=== PATIENT | female | born 1980 | race African-American/Black ===

== ENCOUNTER 2021-10-03 16:43 | Emergency (ER) | payer BC ==
--- OUTSIDE RECORDS SUMMARY | 2021-10-03 16:47 | XMS REPORT | Continuity of Care Document ---
:1980 Author Organization [facility] t Address [facility]3 Alin Nguyen. [address] [place] [address] Care Team Providers Name Role Phone Dalila Roberson Attending Clinician Unavailable Dalila Roberson Attending Clinician Unavailable RK Attending Clinician Unavailable Eileen Attending Clinician Unavailable DR Charlie OSULLIVAN Attending Clinician Unavailable Dalila Roberson Admitting Clinician Unavailable RK Admitting Clinician Unavailable Eileen Admitting Clinician Unavailable DR Charlie OSULLIVAN Admitting Clinician Unavailable Payers Payer Name Policy Type Policy Number Effective Date Expiration Date S boris [place]: [facility] [id number] 2018 EMPLOYEE PROGRAM 00:00:00 (PPO) 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 00:00: [facility] 00 [facility] Angina Angina Problem Active [place] pectoris Pectoris 1-21 da 00:00: [facility] 00 [facility] Obesity Obesity Problem Active 2018-05 [place] 05-25 da 00:00: [facility] Hypertensi Hypertensi Problem Active 2018-05 [place] ve ve 05-25 da disorder Disorder 00:00: [facility] Eruption Eruption Problem Active [place] [facility] Heart Heart Problem Active [place] murmur Murmur [facility] Elevated Elevated Problem Active [place] blood Blood da pressure Pressure Medica l Group Sprain of Sprain of Problem Active [place] ankle Ankle [facility] Infected Infected Problem Active [place] insect Insect da bite [facility] Sprain of Sprain of Problem Active [place] lateral Lateral da ligament Ligament Medica l of ankle of Ankle Group joint Joint Acute Acute Problem Active [place] sinusitis Sinusitis [facility] Upper Upper Problem Active [place] respirator Respirator da y y Medical infection Infection Grou p Butterfly Butterfly Problem Active [place] rash Rash [facility] 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 Disorder Medica l Group Thoracic Thoracic Problem Active [place] back pain Back Pain [facility] Paresthesi Paresthesi Problem Active [place] a of upper a of Upper da limb [facility] Allergies, Adverse Reactions, Alerts Allergy Allergy Status Severity Reaction(s) Onset Inactive Treating Comm ents Source Name Type Date Date Clinician No Known DA Active [facility] s Aspirin Allergy Active [place] to da substanc [facility] Zithroma Allergy Active [place] x to da substanc [facility] RAGWEED Allergy Active [place] POLLEN to da substanc [facility] Singulai Allergy Active Moderate Other [place] r to da substanc [facility] Social History Smoking Status Start Date Stop Date Source Never Smoker [facility] Medications Ordered Filled Start Stop Current Ordering Indication Dosage Frequency Signature Comments Components Source Medication Medication Date Date Medication? Clinician (SIG) Name Name Bystolic 10 Bystolic 10 No Bystolic [place] mg tablet mg tablet 10 mg da TAKE 1 TAKE 1 tablet Medical TABLET TABLET TAKE 1 Group EVERY DAY EVERY DAY TABLET BY ORAL BY ORAL EVERY DAY ROUTE. ROUTE. BY ORAL ROUTE. fluticasone fluticasone No fluticason [place] propionate propionate e da 50 50 propionate Medical mcg/actuati mcg/actuati 50 G roup on nasal on nasal mcg/actuat spray,suspe spray,suspe ion nasal nsion SHAKE nsion SHAKE spray,susp LIQUID AND LIQUID AND ension USE 1 SPRAY USE 1 SPRAY SHAKE IN EACH IN EACH LIQUID AND NOSTRIL NOSTRIL USE 1 EVERY DAY EVERY DAY SPRAY IN EACH NOSTRIL EVERY DAY Mucinex Mucinex No Mucinex [facility] Tylenol Tylenol No Tylenol [facility] [facility] amoxicillin amoxicillin No 1 Q12H amoxicilli [place] [phone] 875 da mg-potassiu mg-potassiu mg-potassi [facility] m m um al clavulanate clavulanate clavulanat Health 125 mg 125 mg e 125 mg Outreac tablet Take tablet Take tablet h 1 tablet 1 tablet Take 1 Progr am every 12 every 12 tablet hours by hours by every 12 oral route oral route hours by for 5 days. for 5 days. oral route Start if no Start if no for 5 improvement improvement days. in symptoms in symptoms Start if in 48-72 in 48-72 no hours. hours. improvemen t in symptoms in 48-72 hours. Bromfed DM Bromfed DM No 10mL Q4H Bromfed DM [place] 2 mg-30 2 mg-30 2 mg-30 da mg-10 mg/5 mg-10 mg/5 mg-10 mg/5 [facility] mL oral mL oral mL oral al syrup Take syrup Take syrup Take Health 10 mL every 10 mL every 10 mL Outreac 4 hours by 4 hours by every 4 h oral route oral route hours by Program as needed. as needed. oral route for cough for cough as needed. and and for cough congestion congestion and congestion Bystolic 10 Bystolic 10 No Bystolic [place] mg tablet mg tablet 10 mg da TAKE 1 TAKE 1 tablet [facility] TABLET TABLET TAKE 1 al EVERY DAY EVERY DAY TABLET Hea lth BY ORAL BY ORAL EVERY DAY Outr eac ROUTE. ROUTE. BY ORAL h ROUTE. Program cetirizine cetirizine No cetirizine [place] 10 mg 10 mg 10 mg da tablet TAKE tablet TAKE tablet [facility] 1 TABLET 1 TABLET TAKE 1 al EVERY DAY EVERY DAY TABLET Hea lth BY ORAL BY ORAL EVERY DAY Outr eac ROUTE FOR ROUTE FOR BY ORAL h 30 DAYS. 30 DAYS. ROUTE FOR Pr ogram 30 DAYS. cyclobenzap cyclobenzap No cyclobenza [place] rine 10 mg rine 10 mg kaya 10 da tablet TAKE tablet TAKE mg tablet [facility] ONE (1) ONE (1) TAKE ONE al TABLET(S) TABLET(S) (1) Healt h BY MOUTH BY MOUTH TABLET(S) Ou treac THREE TIMES THREE TIMES BY MOUTH h A DAY FOR A DAY FOR THREE Prog tod MUSCLE MUSCLE TIMES A SPASMS. SPASMS. DAY FOR MUSCLE SPASMS. fluticasone fluticasone No fluticason [place] propionate propionate e da 50 50 propionate [facility] mcg/actuati mcg/actuati 50 a l on nasal on nasal mcg/actuat H ealth spray,suspe spray,suspe ion nasal Outreac nsion SPRAY nsion SPRAY spray,susp h ONE (1) ONE (1) ension Program SPRAY IN SPRAY IN SPRAY ONE EACH EACH (1) SPRAY NOSTRIL NOSTRIL IN EACH EVERY DAY. EVERY DAY. NOSTRIL EVERY DAY. mometasone mometasone No 2spray( Q1D mometasone [place] 50 50 s) 50 da mcg/actuati mcg/actuati mcg/actuat [facility] on nasal on nasal ion nasal al spray Schroeder spray Schroeder spray Health 2 sprays 2 sprays Schroeder 2 Outr eac every day every day sprays h by by every day Program intranasal intranasal by route. 2 route. 2 intranasal sprays to sprays to route. 2 each each sprays to nostril nostril each nostril Zyrtec 10 Zyrtec 10 No Zyrtec 10 [place] mg capsule mg capsule mg capsule da [facility] Immunizations Ordered Immunization Filled Immunization Date Status Commen ts Source Name Name COVID-19 COVID-19 2020-07-15 Completed [place] (SARS-COV-2) (SARS-COV-2) 00:00:00 [facility] vaccine, unspecified vaccine, Outr each Program unspecified COVID-19 COVID-19 2020-06-24 Completed [place] (SARS-COV-2) (SARS-COV-2) 00:00:00 [facility] vaccine, unspecified vaccine, Outr each Program unspecified Vital Signs Vital Name Observation Time Observation Value Comments Source Height/Length 2021-06-06 10:12:29 162 cm Measured Weight Dosing 2021-06-06 10:12:29 129.72 kg BP Diastolic 2021-08-02 00:00:00 91 mm[Hg] [facility] Height 2021-08-02 00:00:00 64 [facility] BMI (Body Mass 2021-08-02 00:00:00 49.9 kg/m2 [place] [facility] Index) [facility] Outreach Program BP Systolic 2021-08-02 00:00:00 132 mm[Hg] [facility] Body Weight 2021-08-02 00:00:00 4656 [oz_av] [facility] Height 2021-03-20 00:00:00 64 [in_i] [facility] Height 2021-02-23 00:00:00 64 [in_i] [facility] BMI (Body Mass 2021-02-23 00:00:00 51 kg/m2 [place] [facility] Index) [facility] Outreach Program Body Weight 2021-02-23 00:00:00 4752 [oz_av] [facility] BP Diastolic 2021-01-25 00:00:00 90 mm[Hg] [facility] Height 2021-01-25 00:00:00 64 [in_i] [facility] BMI (Body Mass 2021-01-25 00:00:00 51 kg/m2 [place] [facility] Index) Group BP Systolic 2021-01-25 00:00:00 143 mm[Hg] [facility] Body Weight 2021-01-25 00:00:00 297 [lb_av] [facility] Height 2020-10-22 11:14:00 160.02 CM Weight 2020-10-22 11:14:00 134.71 KG Height 2020-10-18 00:00:00 64 [in_i] [facility] BMI (Body Mass 2020-10-18 00:00:00 51 kg/m2 [place] [facility] Index) [facility] Outreach Program Body Weight 2020-10-18 00:00:00 4752 [oz_av] [place] [facility] BP Diastolic 2020-02-03 00:00:00 90 mm[Hg] [place] [facility] Height 2020-02-03 00:00:00 64 [in_i] [place] [facility] BMI (Body Mass 2020-02-03 00:00:00 48.1 kg/m2 [place] [facility] Index) [facility] Outreach Program BP Systolic 2020-02-03 00:00:00 142 mm[Hg] [place] [facility] Body Weight 2020-02-03 00:00:00 4480 [oz_av] [place] [facility] Height/Length 2019-09-18 16:27:08 Measured Weight Dosing 2019-09-18 16:27:08 BP Diastolic 2019-08-24 00:00:00 80 mm[Hg] [place] [facility] Height 2019-08-24 00:00:00 64 [in_i] [place] [facility] BP Systolic 2019-08-24 00:00:00 130 mm[Hg] [place] [facility] BP Diastolic 2019-08-18 00:00:00 103 mm[Hg] [place] [facility] Height 2019-08-18 00:00:00 64 [in_i] [place] [facility] BMI (Body Mass 2019-08-18 00:00:00 49.1 kg/m2 [place] [facility] Index) [facility] Outreach Program BP Systolic 2019-08-18 00:00:00 178 mm[Hg] [place] [facility] Body Weight 2019-08-18 00:00:00 286 [lb_av] [place] [facility] BP Diastolic 2019-03-25 00:00:00 96 mm[Hg] [place] [facility] Height 2019-03-25 00:00:00 64 [in_i] [place] [facility] BMI (Body Mass 2019-03-25 00:00:00 49.3 kg/m2 [facility] chain [facility]arer [facility] Index) Health Outreach Program BP Systolic 2019-03-25 00:00:00 147 mm[Hg] [facility] Body Weight 2019-03-25 00:00:00 287 [lb_av] [facility] Procedures Procedure Date / Time Performing Clinician Source Performed MAMMO, screening, 2021-01-25 00:00:00 [facility] EXTIRPAT MATTR RT EXT AUD 2020-10-22 00:00:00 [facility] Cholecystectomy 2006-05-20 00:00:00 [place] [facility] Laparoscopy [place] [facility] Dilation and Curettage [place] [facility] Hernia Repair [place] [facility] Plan of Care Planned Activity Planned Date Details Comments Source Diagnostic Test 2021-08-02 rapid flu (A+B) [place] [facility] Pending 00:00:00 [code = rapid flu Health Out reach (A+B)] Program Diagnostic Test 2021-01-25 HBsAg (hepatitis B [place] [facility] Pending 00:00:00 surface Ag), serum Group [code = HBsAg (hepatitis B surface Ag), serum] Diagnostic Test 2021-01-25 HIV (1+2) Ab [place] [facility] Pending 00:00:00 screen, serum Group [code = HIV (1+2) Ab screen, serum] Diagnostic Test 2021-01-25 RPR (rapid plasma [place] [facility] Pending 00:00:00 reagin), serum Group [code = RPR (rapid plasma reagin), serum] Diagnostic Test 2021-01-25 TSH + free T4, [place] Pending 00:00:00 serum [code = TSH Group + free T4, serum] Diagnostic Test 2021-01-25 pap, LB + reflex [facility] 00:00:00 HPV [code = pap, Group LB + reflex HPV] Encounters Start End Encounter Admission Attending Care Care Encounter Source Date/Time Date/Time Type Type Clinicians Facility Department ID 2019-09-[address] [facility] [id number] 13:19:00 Sarkis Roberson [facility] 2021-08-03 2021-08-03 Outpatient JAYLYNBERTMICHELLE [place] [id number] [place] 08:25:00 08:25:00 IE 0317 da [facility] 2021-08-02 2021-08-02 Outpatient [place]ERTMICHELLE [place] [id number] [place] 07:38:00 07:38:00 IE 0316 da [facility] 2021-08-02 2021-08-02 Sean [facility] [place] - [id number] Simone atagoerin 00:00:00 00:00:00 Estela: 1700 Kulwinder Bautista [facility] [address] Expansion Out reac , Ph. h ([phone]) Program 2021-05-25 2021-05-25 Outpatient VIGNESH_RENEE [place] [id number] [place] 12:14:00 12:14:00 IE 0117 da [facility] 2021-03-20 2021-03-20 Outpatient GILDAVID_RENEE [place] [id number] [place] 09:21:00 09:21:00 IE 1101 da [facility] 2021-03-20 2021-03-20 Abby [facility] [place] - [id number] [place] 00:00:00 00:00:00 Kulwinder Christopher DIRECTOR COMPLIANCE: 1700 [facility] [place], [place] Expansion [facility] [address] h , Ph. Program 2021-02-23 2021-02-23 Outpatient GILBERT_RENEE [place] [id number] [place] 04:01:00 04:01:00 IE 1007 da [facility] 2021-02-23 2021-02-23 [facility] [place] [facility] [id number] [place] 00:00:00 00:00:00 Kulwinder Christopher DIRECTOR COMPLIANCE: 1700 [facility] [place], [place], [place] Outre [address] h , Ph. Program 2021-01-25 2021-01-25 Outpatient C_Brando [facility] [id number] [place] 10:01:00 10:01:00 0908 [facility] 2021-01-25 2021-01-25 Brandie [facility] [place] - [id number] [place] 00:00:00 00:00:00 Louis [facility] max MD: [address] [facility] [address], [place] [address] , Ph. [phone] 2020-10-22 2020-10-22 Outpatient Mike OSULLIVAN, [facility] [id number] [facility] 11:06:00 14:00[facility] 2020-10-19 2020-10-19 Outpatient GILBERT_KAT [place] [id number] [place] 08:20:00 08:20:00 IE 0602 da [facility] 2020-10-18 2020-10-18 Outpatient GILBERT_KAT [place] [id number] [place] 05:02:00 05:02:00 IE 0601 da [facility] 2020-10-18 2020-10-18 Abby [facility] [place] - [id number] [place] 00:00:00 00:00:00 Kulwinder Christopher DIRECTOR COMPLIANCE: 1700 [facility] [place], [place], [place] Outre [address] h , Ph. Program 2020-02-03 2020-02-03 Outpatient GILBERT_KAT IAHOP [facility] [id number] [place] 09:10:00 09:10:00 IE 0916 da [facility] 2020-02-03 2020-02-03 [facility] [place] [facility] [id number] [place] 00:00:00 00:00:00 Kulwinder Christopher DIRECTOR COMPLIANCE: 1700 [facility] [address] , Ph. Program 2020-01-28 2020-01-28 Outpatient SARKIS ROBERSON [facility] [id number] [place] 00:00:00 00:00:[address] 2020-01-20 2020-01-20 Outpatient ANIRUDH, SARKIS [facility] [id number] [place] 00:00:00 00:00:[address] 2020-01-11 2020-01-11 Outpatient ANIRUDH, SARKIS [facility] [id number] [place] 00:00:00 00:00:[address] 2020-01-07 2020-01-07 Outpatient ANIRUDH, SARKIS [facility] [id number] [place] 00:00:00 00:00:[address] 2019-12-30 2019-12-30 Outpatient ANIRUDH, SARKIS [facility] [id number] [place] 00:00:00 00:00:[address] 2019-12-28 2019-12-28 Outpatient ANIRUDH, SARKIS [facility] [id number] [place] 00:00:00 00:00:[address] 2019-12-25 2019-12-25 Outpatient SARKIS ROBERSON [facility] [id number] [place] 00:00:00 00:00:[address] 2019-12-23 2019-12-23 Outpatient SARKIS ROBERSON [facility] [id number] [place] 00:00:00 00:00:[address] 2019-12-16 2019-12-16 Outpatient SARKIS ROBERSON [facility] [id number] [place] 00:00:00 00:00:[address] 2019-12-14 2019-12-14 Outpatient SARKIS ROBERSON [facility] [id number] [place] 00:00:00 00:00:[address] 2019-12-09 2019-12-09 Outpatient SARKIS ROBERSON [facility] [id number] [place] 00:00:00 00:00:[address] 2019-12-04 2019-12-04 Outpatient SARKIS ROBERSON [facility] [id number] [place] 00:00:00 00:00:[address] 2019-12-02 2019-12-02 Outpatient ANIRUDH, SARKIS [facility] [id number] [place] 00:00:00 00:00:[address] 2019-11-30 2019-11-30 Outpatient ANIRUDH, SARKIS [facility] [id number] [place] 00:00:00 00:00:[address] 2019-11-25 2019-11-25 Outpatient ANIRUDH, SARKIS [facility] [id number] [place] 00:00:00 00:00:[address] 2019-11-23 2019-11-23 Outpatient ANIRUDH, SARKIS [facility] [id number] [place] 00:00:00 00:00:[address] 2019-11-19 2019-11-19 Outpatient ANIRUDH, SARKIS [facility] [id number] [place] 00:00:00 00:00:[address] 2019-11-17 2019-11-17 Outpatient ANIRUDH, SARKIS [facility] [id number] [place] 00:00:00 00:00:[address] 2019-11-16 2019-11-16 Outpatient ANIRUDH, SARKIS [facility] [id number] [place] 00:00:00 00:00:[address] 2019-11-06 2019-11-06 Outpatient ANIRUDH, SARKIS [facility] [id number] [place] 00:00:00 00:00:[address] 2019-11-02 2019-11-02 Outpatient ANIRUDH, SARKIS [facility] [id number] [place] 00:00:00 00:00:[address] 2019-10-28 2019-10-28 Outpatient ANIRUDH, SARKIS [facility] [id number] [place] 00:00:00 00:00:[address] 2019-10-26 2019-10-26 Outpatient ANIRUDH, SARKIS [facility] [id number] [place] 00:00:00 00:00:[address] 2019-10-23 2019-10-23 Outpatient ANIRUDH, SARKIS [facility] [id number] [place] 00:00:00 00:00:[address] 2019-10-21 2019-10-22 Outpatient ANIRUDH, SARKIS [facility] [id number] [place] 00:00:00 00:00:[address] 2019-10-19 2019-10-19 Outpatient SARKIS ROBERSON [facility] [id number] [place] 00:00:00 00:00:[address] 2019-10-16 2019-10-16 Outpatient SARKIS ROBERSON [facility] [id number] [place] 00:00:00 00:00:[address] 2019-10-15 2019-10-15 Outpatient SARKIS ROBERSON [facility] [id number] [place] 00:00:00 00:00:[address] 2019-10-13 2019-10-13 Outpatient SARKIS ROBERSON [facility] [id number] [place] 00:00:00 00:00:[address] 2019-10-08 2019-10-08 Outpatient SARKIS ROBERSON [facility] [id number] [place] 00:00:00 00:00:[address] 2019-10-05 2019-10-05 Outpatient SARKIS ROBERSON [facility] [id number] [place] 00:00:00 00:00:[address] 2019-10-02 2019-10-02 Outpatient SARKIS ROBERSON [facility] [id number] [place] 00:00:00 00:00:[address] 2019-09-29 2019-09-29 Outpatient SARKIS ROBERSON [facility] [id number] [place] 00:00:00 00:00:[address] 2019-09-18 2019-09-18 Outpatient [address] [facility] [id number] 15:21:00 15:21:00 Sarkis Roberson -[id number] [facility] 2019-08-28 2019-08-28 Outpatient GILBERT_KAT IAHOP [facility] [id number] [place] 01:23:00 01:23:00 IE 0410 [facility] 2019-08-24 2019-08-24 Outpatient GILBERT_KAT IAHOP [facility] [id number] [place] 04:42:00 04:42:00 IE 0406 da [facility] 2019-08-24 2019-08-24 Ademariamunbi [facility] [place] - [id number] [place] 00:00:00 00:00:00 Kulwinder Christopher da DIRECTOR COMPLIANCE: 1700 [facility] [address], [facility] [address] h , Ph. Program 2019-08-18 2019-08-18 Outpatient MAL MAHAN [facility] [id number] [place] 08:33:00 08:33:00 IE 0331 [facility] Program 2019-08-18 2019-08-18 Abby [facility] [place] - [id number] [place] 00:00:00 00:00:00 Kulwinder Christopher DIRECTOR COMPLIANCE: 1700 [facility] [address], [facility] [address] h , Ph. Program 2019-03-25 2019-03-25 Abby [facility] - [id number] [place] 00:00:00 00:00:00 Kulwinder Christopher DIRECTOR COMPLIANCE: 1700 [facility] [address], [address] [address] [facility] am , Ph. 2016-08-30 2016-08-30 Outpatient [facility] [id number] [place] 11:25:00 11:25:00 0708 Medical Group 2016-08-30 2016-08-30 Outpatient [facility] [id number] [place] 11:25:00 11:25:00 0803 Medical Group Results Test Description Test Time Test Comments Results Result Comments Source rapid flu (A+B) 2021-08-02 19:38:51 Test Item Value Reference Range Interpretation Comme nts Flu (test code = Flu) negative [facility] virus A + B and SARS CoV 2 (COVID-19) and RSV RNA panel, MAYE+probe, respiratory [id number] 20:10:21 Test Item Value Reference Range Interpretation Comments Influenza A (test code = Influenza negative A) Influenza B (test code = Influenza negative B) RSV (test code = RSV) negative Sars Cov 2 (test code = Sars Cov 2) [facility], [id number] 18:22:18 Test Item Value Reference Range Interpretation Comments Strep (test code = Strep) negative [facility] B and SARS CoV 2 (COVID-19) and RSV RNA panel, MAYE+probe, respiratory [id number] 17:02:42 Test Item Value Reference Range Interpretation Comments Influenza A (test code = Influenza negative A) Influenza B (test code = Influenza negative B) RSV (test code = RSV) negative Sars Cov 2 (test code = Sars Cov 2) [facility] [id number] 17:05:16 Test Item Value Reference Range Interpretation Comments hCG Ur (test code = Negative If the r esult is hCG Ur) "Negative" in p atients suspected to be , recom mend retest with a s ample obtained 48 to 72 hours later, or by ordering a quantitative as say. If the result i s "Borderline" te sting should be repea myra in 48 to 72 hours. Lot # (test code = [id number] Lot #) Expiration Dt (test 2020-11-16 N code = Expiration Dt) Neg Control (test Negative code = Neg Control) Pos Control (test Positive code = Pos Control) Internal QC (test Acceptable code = Internal QC) SARS coronavirus 2 RNA [Presence] in Respiratory specimen by MAYE with probe [id number] 00:00:00 Test Item Value Reference Range Interpretation Comments SARS coronavirus 2 RNA not detected not detected [Presence] in Respiratory specimen by MAYE with probe detection (test code = 72887-7) [facility] [Presence] in Respiratory specimen by MAYE with probe [id number] 00:00:00 Test Item Value Reference Range Interpretation Comments SARS coronavirus 2 RNA not detected not detected [Presence] in Respiratory specimen by MAYE with probe detection (test code = 98443-5) [facility] [id number] 00:00:00 Test Item Value Reference Range Interpretation Comments Bacteria identified in Urine by no growth Culture (test code = 630-4) [facility] by [id number] 00:00:00 Test Item Value Reference Range Interpretation Comments Bacteria identified in Urine by no growth Culture (test code = 630-4) [facility]2019-08[facility]18 18:17:00 Test Item Value Reference Range Interpretation Comments Flu (test code = Flu) negative [facility]2019-08-18 18:17:00 Test Item Value Reference Range Interpretation Comments Flu (test code = Flu) negative [facility]-08[facility]18 18:17:00 Test Item Value Reference Range Interpretation Comments Flu (test code = Flu) negative [facility], [id number] 17:58:00 Test Item Value Reference Range Interpretation Comments Strep (test code = Strep) negative [facility], [id number] 17:58:00 Test Item Value Reference Range Interpretation Comments Strep (test code = Strep) negative [facility], [id number] 17:58:00 Test Item Value Reference Range Interpretation Comments Strep (test code = Strep) negative [facility]
[2021-10-03 18:42] LABS: Absolute Lymphocytes (CBC) 1.4 K/uL (0.7-4.9); Hematocrit 37.3 % (36.0-45.0); Lymphocytes % 37.4 % (15.3-44.8); MPV 8.6 fL (7.6-11.3); RBC Red Blood Cell Count 4.07 M/uL (3.86-4.86)
[2021-10-03 18:44] LABS: Protime INR 1.01
[2021-10-03 18:55] LABS: Potassium 3.7 mmol/L (3.5-5.1)
[2021-10-03 18:58] LABS: Troponin High Sensitivity 3.8 pg/mL (<58.9)
[2021-10-03 19:34] LABS: Urine Blood Negative (Negative); Urine Glucose Negative (Negative); Urine Protein Negative (Negative)
--- NOTE | 2021-10-03 19:38 | RAD REPORT ---
EXAM DESCRIPTION: RAD - Chest Single View - 10/03/2021 7:28 pm CLINICAL HISTORY: CHEST PAIN Chest pain. COMPARISON: No comparisons FINDINGS: Portable technique limits examination quality. The lungs are grossly clear. The heart is normal in size. No displaced fractures. IMPRESSION: No acute intrathoracic process suspected.
[2021-10-03] MEDS ORDERED: ONDANSETRON 4 MG/2 ML VIAL ONE (19:48)
[2021-10-03] MEDS ORDERED: DICYCLOMINE HCL 20 MG/2 ML AMP IM ONE (19:48)
--- NOTE | 2021-10-03 20:26 | RAD REPORT ---
EXAM DESCRIPTION: CTAbdomen Pelvis W Contrast - 10/03/2021 8:09 pm CLINICAL HISTORY: Abdominal pain. LUQ abdominal pain COMPARISON: No comparisons TECHNIQUE: Biphasic CT imaging of the abdomen and pelvis was performed with 100 ml non-ionic IV cont rast. All CT scans are performed using dose optimization technique as appropriate and may include automated exposure control or mA/KV adjustment according to patient size. FINDINGS: The lung bases are clear. The liver, spleen, pancreas, adrenal glands and kidneys are within normal limits. Cholecystectomy. No bowel obstruction, free air, free fluid or abscess. The appendix is normal. No evidence of signi ficant lymphadenopathy. No suspicious bony findings. IMPRESSION: No acute intra-abdominal or pelvic finding.
--- NOTE | 2021-10-03 20:51 | EDPHYS ---
Physician Documentation [facility] Name: Dottie Okeefe Age: 41 yrs Sex: Female : 1980 Arrival Date: 10/03/2021 Time: 16:48 Bed 2 Private MD: ED Physician Juan R Woodson HPI: 10/03 18:06 This 41 yrs old Black Female presents to ER via Ambulatory with complaints of Chest pm1 Pain, Back Pain, Abdominal Pain, Numbness Of Arm. 18:06 The patient or guardian reports chest pain that is located primarily in the xiphoid pm1 area. Onset: this morning. The pain radiates to Chest and lower abdomen from epigastric area. Associated signs and symptoms: Pertinent positives: nausea, Pertinent negatives: cough, dizziness, headache, shortness of breath, vomiting. The chest pain is described as aching. Modifying factors: The symptoms are alleviated by eating, the symptoms are aggravated by nothing. Severity of pain: in the emergency department the pain is actually worse. Patient reports similarity of epigastric pain to prior ulcers. Patient negative for dark stool. Patient reports that she came to the ER due to radiation of pain from her epigastric area to her chest and lower abdomen. The patient has not recently seen a physician. 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 - Social history:: Smoking status: Patient denies any tobacco usage or history of. ROS: 18:06 Constitutional: Negative for fever, chills, and weight loss. pm1 18:06 Respiratory: Negative for shortness of breath, cough, wheezing, and pleuritic chest pain. 18:06 Back: Negative for injury and pain, MS/Extremity: Negative for injury and deformity, Skin: Negative for injury, rash, and discoloration, Neuro: Negative for headache, weakness, numbness, tingling, and seizure. 18:06 Cardiovascular: Positive for chest pain, Negative for edema, palpitations. 18:06 Abdomen/GI: Positive for abdominal pain, nausea, of the epigastric area, right lower quadrant and left lower quadrant, Negative for vomiting, diarrhea, constipation. 18:06 All other systems are negative. Exam: 18:06 Constitutional: This is a well developed, well nourished patient who is awake, alert, pm1 and in no acute distress. Head/Face: Normocephalic, atraumatic. 18:06 Back: No spinal tenderness. No costovertebral tenderness. Full range of motion. Skin: Warm, dry with normal turgor. Normal color with no rashes, no lesions, and no evidence of cellulitis. MS/ Extremity: Pulses equal, no cyanosis. Neurovascular intact. Full, normal range of motion. 18:06 Cardiovascular: Exam negative for acute changes, Rate: normal, Rhythm: regular, Pulses: no pulse deficits are appreciated. 18:06 Respiratory: Exam negative for acute changes, respiratory distress, shortness of breath. 18:06 Abdomen/GI: Inspection: abdomen appears normal, Palpation: soft, in all quadrants, mild abdominal tenderness, in the left upper quadrant. 18:06 Neuro: Exam negative for acute changes, Orientation: is normal, Mentation: is normal, Motor: is normal, moves all fours. Vital Signs: 17:50 BP 175 / 93; Pulse 73; Resp 18; Temp 97.2; Pulse Ox 97% ; Weight 131.54 kg; Height 5 ww ft. 4 in. (162.56 cm); Pain 6/10; 20:00 BP 151 / 81; Pulse 66; Resp 17; Pulse Ox 100% on R/A; lp1 21:12 BP 142 / 82; Pulse 64; Resp 18; Pulse Ox 100% on R/A; lp1 17:50 Body Mass Index 49.78 (131.54 kg, 162.56 cm) ww MDM: 18:27 Data reviewed: vital signs. Data interpreted: Pulse oximetry: on room air is 97 %. pm1 Interpretation: normal. 18:28 Patient medically screened. pm1 20:50 Counseling: I had a detailed discussion with the patient and/or guardian regarding: the pm1 historical points, exam findings, and any diagnostic results supporting the discharge/admit diagnosis, lab results, radiology results, the need for outpatient follow up, to return to the emergency department if symptoms worsen or persist or if there are any questions or concerns that arise at home. 10/03 18:05 Order name: Basic Metabolic Panel; Complete Time: 19:12 iw 10/03 18:05 Order name: CBC with Diff; Complete Time: 19:12 iw 10/03 18:05 Order name: Troponin HS; Complete Time: 19:12 iw 10/03 18:17 Order name: PT-INR; Complete Time: 19:12 kj1 10/03 19:34 Order name: Urine Dipstick-Ancillary; Complete Time: 19:43 EDMS 10/03 19:36 Order name: Urine --Ancillary (enter results); Complete Time: 20:04 oe 10/03 18:05 Order name: XRAY Chest (1 view); Complete Time: 19:43 iw 10/03 18:05 Order name: EKG; Complete Time: 18:06 iw 10/03 18:05 Order name: Cardiac monitoring; Complete Time: 19:40 iw 10/03 19:26 Order name: CT Abd/Pelvis - IV Contrast Only; Complete Time: 20:45 pm1 10/03 18:05 Order name: EKG - Nurse/Tech; Complete Time: 18:15 iw 10/03 18:05 Order name: IV Saline Lock; Complete Time: 18:15 iw 10/03 18:05 Order name: Labs collected and sent; Complete Time: 19:11 iw 10/03 18:05 Order name: O2 Per Protocol; Complete Time: 19:40 iw 10/03 18:05 Order name: O2 Sat Monitoring; Complete Time: 19:40 iw Administered Medications: 19:45 Drug: Bentyl (dicyclomine) 20 mg Route: IM; Site: right gluteus; lp1 21:06 Follow up: Response: No adverse reaction lp1 19:45 Drug: Zofran (Ondansetron) 4 mg Route: IVP; Site: left antecubital; lp1 21:06 Follow up: Response: No adverse reaction; Marked relief of symptoms lp1 21:05 Drug: GI Cocktail without - (Maalox Suspension 30 ml, Lidocaine Liquid 2 % 15 lp1 ml) Route: PO; 21:23 Follow up: Response: No adverse reaction as6 21:06 Drug: Pepcid (famotidine) 20 mg Route: IVP; Site: left antecubital; lp1 21:23 Follow up: Response: No adverse reaction as6 Disposition Summary: 10/03/21 20:50 Discharge Ordered Location: Home pm1 Problem: new pm1 Symptoms: have improved pm1 Condition: Stable pm1 Diagnosis - Abdominal pain, unspecified pm1 - Chest pain, unspecified pm1 Followup: pm1 - With: Emergency Department - When: As needed - Reason: Worsening of condition Followup: pm1 - With: Private Physician - When: 2 - 3 days - Reason: Recheck today's complaints, Continuance of care, Re-evaluation by your physician Discharge Instructions: - Discharge Summary Sheet pm1 - Abdominal Pain, Adult pm1 - Nonspecific Chest Pain, Adult pm1 Forms: - Medication Reconciliation Form pm1 - Thank You Letter pm1 - Antibiotic Education pm1 - Prescription Opioid Use pm1 Prescriptions: - ondansetron 4 mg Oral tablet,disintegrating - place 1 tablet by TRANSLINGUAL route every 8 hours As needed; 12 tablet; pm1 Refills: 0, Product Selection Permitted - dicyclomine 20 mg Oral Tablet - take 1 tablet by ORAL route every 6 hours As needed; 20 tablet; Refills: 0, pm1 Product Selection Permitted - Pepcid 20 mg Oral Tablet - take 1 tablet by ORAL route every 12 hours for 10 days; 20 tablet; Refills: 0, pm1 Product Selection Permitted Signatures: Dispatcher [employer] Carlie Khan RN RN iw Pena, Laura RN RN lp1 Luis Carlos Fernandez, ERENDIRA MATTRESS PACKER pm1 Lydia Foote RN RN ww Slawson, Ashby RN as6
--- NOTE | 2021-10-03 20:51 | ER ---
Nurse's Notes [facility] Name: Dottie Okeefe Age: 41 yrs Sex: Female : 1980 Arrival Date: 10/03/2021 Time: 16:48 Bed 2 Private MD: Diagnosis: Abdominal pain, unspecified;Chest pain, unspecified Presentation: 10/03 17:50 Chief complaint: Patient states: Epigastric/abdominal pain that started this morning ww and at work pushed up towards her chest. Patient states her left arm is going numb since waiting. Complains of nausea. Coronavirus screen: Client denies travel out of the [place] in the last 14 days. Ebola Screen: Patient denies travel to an Ebola-affected area in the 21 days before illness onset. Initial Sepsis Screen: Does the patient meet any 2 criteria? No. Patient's initial sepsis screen is negative. Does the patient have a suspected source of infection? No. Patient's initial sepsis screen is negative. Risk Assessment: Do you want to hurt yourself or someone else? Patient reports no desire to harm self or others. Onset of symptoms was October 03, 2021. 17:50 Method Of Arrival: Ambulatory ww 17:50 Acuity: PERRI 3 ww Triage Assessment: 21:22 General: Appears. 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 - Social history:: Smoking status: Patient denies any tobacco usage or history of. Screenin:24 Abuse screen: Denies threats or abuse. Denies injuries from another. Nutritional lp1 screening: No deficits noted. Tuberculosis screening: No symptoms or risk factors identified. Fall Risk None identified. Assessment: 19:20 Reassessment: Radiology at bedside. lp1 19:24 Reassessment: Patient ambulating to bathroom; reports pain to chest has not changed at lp1 this time. 19:30 General: Appears in no apparent distress. Behavior is calm, cooperative, appropriate lp1 for age. Pain: Complains of pain in epigastric area Pain radiates to chest Pain currently is 6 out of 10 on a pain scale. Quality of pain is described as burning, Pain began gradually. Neuro: Level of Consciousness is awake, alert, obeys commands, Oriented to person, place, time, situation. Cardiovascular: Patient's skin is warm and dry. Rhythm is regular. Respiratory: Respiratory effort is even, unlabored. GI: Abdomen is non-distended, Patient currently denies nausea, vomiting. : No signs and/or symptoms were reported regarding the genitourinary system. EENT: No signs and/or symptoms were reported regarding the EENT system. Derm: Skin is intact, Skin is dry, Skin is normal. Musculoskeletal: No deficits noted. 21:00 Reassessment: Patient reports pain has decreased, reports some soreness to epigastric lp1 area; denies nausea Patient states feeling better. 21:22 Reassessment: Patient appears in no apparent distress at this time. Patient states as6 symptoms have improved. Vital Signs: 17:50 BP 175 / 93; Pulse 73; Resp 18; Temp 97.2; Pulse Ox 97% ; Weight 131.54 kg; Height 5 ww ft. 4 in. (162.56 cm); Pain 6/10; 20:00 BP 151 / 81; Pulse 66; Resp 17; Pulse Ox 100% on R/A; lp1 21:12 BP 142 / 82; Pulse 64; Resp 18; Pulse Ox 100% on R/A; lp1 17:50 Body Mass Index 49.78 (131.54 kg, 162.56 cm) ED Course: 16:48 Patient arrived in ED. am2 17:52 Triage completed. ww 17:52 Arm band placed on. ww 18:16 Initial lab(s) drawn, by nc, sent to lab. Inserted saline lock: 20 gauge in left kj1 antecubital area, using aseptic technique. Blood collected. 18:27 Luis Carlos Fernandez NP is PHCP. pm1 18:27 Juan R Woodson MD is Attending Physician. pm1 19:10 Erik Serna RN is Primary Nurse. as6 19:10 Patient has correct armband on for positive identification. Placed in gown. Bed in low lp1 position. Call light in reach. Client placed on continuous cardiac and pulse oximetry monitoring. NIBP monitoring applied. 19:29 XRAY Chest (1 view) In Process Unspecified. EDMS 19:30 Patient maintains SpO2 saturation greater than 95% on room air. lp1 20:11 CT Abd/Pelvis - IV Contrast Only In Process Unspecified. EDMS 20:57 No provider procedures requiring assistance completed. lp1 21:09 Primary Nurse role handed off by Erik Serna, NIKITA lp1 21:09 Nasreen Moore, NIKITA is Primary Nurse. lp1 21:23 IV discontinued, intact, bleeding controlled, No redness/swelling at site. Pressure as6 dressing applied. Administered Medications: 19:45 Drug: Bentyl (dicyclomine) 20 mg Route: IM; Site: right gluteus; lp1 21:06 Follow up: Response: No adverse reaction lp1 19:45 Drug: Zofran (Ondansetron) 4 mg Route: IVP; Site: left antecubital; lp1 21:06 Follow up: Response: No adverse reaction; Marked relief of symptoms lp1 21:05 Drug: GI Cocktail without - (Maalox Suspension 30 ml, Lidocaine Liquid 2 % 15 lp1 ml) Route: PO; 21:23 Follow up: Response: No adverse reaction as6 21:06 Drug: Pepcid (famotidine) 20 mg Route: IVP; Site: left antecubital; lp1 21:23 Follow up: Response: No adverse reaction as6 Medication: 20:57 VIS not applicable for this client. lp1 Outcome: 20:50 Discharge ordered by MD. pm1 21:23 Discharged to home ambulatory. as6 21:23 Condition: stable 21:23 Discharge instructions given to patient, Instructed on discharge instructions, follow up and referral plans. medication usage, Demonstrated understanding of instructions, follow-up care, medications, Prescriptions given X 3. 21:24 Patient left the ED. as6 Signatures: Dispatcher [employer] EDMS Nasreen Moore, NIKITA SHELTON lp1 Luis Carlos Fernandez NP PIPE STRESS ENGINEER pm1 Mony Brandon am2 Rachael Kahn kj1 Erik Serna RN RN as6 Lydia Foote RN RN ww
[2021-10-03] MEDS ORDERED: LIDOCAINE VISCOUS 2% SOLN 15 ML UDC ONE (21:03)
[2021-10-03] MEDS ORDERED: MAGNES/ALUMIN/SIMET 30ML UCUP ONE (21:03)
[2021-10-03] MEDS ORDERED: FAMOTIDINE 20 MG/2 ML VIAL IV ONE (21:03)
[2021-10-03 21:38] VITALS: TEMP 97.2
[2021-10-03 21:39] VITALS: O2SAT 100
[2021-10-03 21:40] VITALS: BP 142/82
--- NOTE | 2021-10-05 07:44 | EKG ---
Test Date: 2021-10-03 Test Time: 18:05:54 Sawmill Equipment Operator: ELVER MEASUREMENT RESULTS: Intervals: Rate: 62 OR: 152 QRSD: 86 QT: 400 QTc: 406 [place]: P: 67 OR: 152 QRS: 56 T: 60 INTERPRETIVE STATEMENTS: Normal sinus rhythm Normal ECG No previous ECG available for comparison Electronically Signed On 10-05-21 07:37:44 CDT by Gilbert Garibay
== END 2021-10-03 21:24 | disposition home or self-care (01) ==
LOC: ER 16:43
DX: R07.9 Chest pain, unspecified (principal); R10.13 Epigastric pain; I10 Essential (primary) hypertension; K21.9 Gastro-esophageal reflux disease without esophagitis
CPT/HCPCS: 93005; 85025; 80048; 36415; 81025; 85610; 81003; 84484; 74177; 71045; Q9967; J0500; J2405; J3490; 96372; 96374; 96375; 99284